=== PATIENT | female | born 1990 | race Caucasian/White ===

== ENCOUNTER 2020-06-22 14:01 | Emergency (ER) | payer OTHER ==
[~2020-06-22] VITALS: Ht 162.6 cm; Wt 63.0 kg
--- NOTE | 2020-06-22 14:39 | PHYS DOC ---
Past History Past Medical History: Hypertension, Ovarian Cyst Past Surgical History: Alcohol Use: Occasionally General Adult EDM: Chief Complaint: ABDOMINAL PAIN HPI: HPI: Patient is a 29-year-old female who presents emergency department with complaints of right lower quadrant abdominal pain and nausea. Patient states that her abdominal pain increases with movement. She denies any vomiting, diarrhea, dysuria, hematuria, increased urinary frequency, back pain, or dif ficulty voiding. The patient denies any fever, cough, shortness of breath, headache, body aches, fatigue, diarrhea, or rectal bleeding. She states her last bowel movement was this morning and it was a little more firm than usual but denies any other changes in her bowel habits. She currently rates her pain a 6 out of 10 on the pain scale, she denies any alleviating or exacerbating factors. Patient states she has been taking Tylenol and ibuprofen at home with no relief in her symptoms. Patient reports having a Mirena and states she has not had a menstrual cycle in over a year. She took a test yesterday because of the nausea and it was negative. Review of Systems: Review of Systems: Complete ROS is negative unless otherwise noted in HPI. Current Medications: Current Meds: Current Medications Medications (Trade) Dose Ordered Sig/Miryam Start Time Stop Time Status Last Admin Dose Admin Ondansetron HCl (Zofran) 4 mg 1X ONCE 06/22/20 14:45 06/22/20 14:46 UNV Sodium Chloride 1,000 ml @ 1,000 mls/hr 1X ONCE 06/22/20 14:45 06/22/20 15:44 UNV Allergies: Allergies: Allergies Coded Allergies Type Severity Reaction Last Updated Verified No Known Drug Allergies 06/22/20 No Physical Exam: PE: See Above Constitutional: Well developed, well nourished, no acute distress, non-toxic appearance. [] HENT: Normocephalic, atraumatic, bilateral external ears normal, nose normal. [] Eyes: PERRLA, EOMI, conjunctiva normal, no discharge. [] Neck: Normal range of motion, no stridor. [] Cardiovascular:Heart rate regular rhythm Lungs & Thorax: Respirations even and unlabored, no retractions, no respiratory distress Abdomen: soft, RLQ TTP, no rebound tenderness, no guarding, McBurney's point tenderness present, Rovsing sign positive, psoas sign positive Skin: Warm, dry, no erythema, no rash. [] Extremities: No cyanosis, ROM intact, no edema. [] Neurologic: Alert and oriented X 3, no focal deficits noted. [] Psychologic: Affect normal, judgement normal, mood normal. [] Current Patient Data: Vital Signs: Vital Signs Date Time Temp Pulse Resp B/P (MAP) Pulse Ox O2 Delivery O2 Flow Rate FiO2 06/22/20 14:20 98.2 95 24 143/89 (107) 100 Room Air EKG: EKG: [] Radiology/Procedures: Radiology/Procedures: PROCEDURE: CT ABD PELV W/ IV CONTRST ONLY CT abdomen pelvis with contrast dated 06/22/2020. No comparison available. CLINICAL INDICATION: Right lower quadrant pain and nausea. TECHNIQUE: Per contiguous axial imaging the abdomen pelvis performed after the administration of 75 cc Omnipaque 300. One or more of the following individualized dose reduction techniques were utilized for this examination: 1. Automated exposure control 2. Adjustment of the mA and/or kV according to patient size 3. Use of iterative reconstruction technique. FINDINGS: Limited images of lung bases are clear. Heart size within normal limits. No p leural or pericardial effusion. Liver, spleen, pancreas, adrenal glands, gallbladder and kidneys are unremarkable. No hydronephrosis. Unopacified GI tract normal in caliber and contour. No focal bowel wall thickening. No inflammatory stranding in the mesentery. The appendix is normal in caliber. No ascites or lymphadenopathy. Images of the pelvis show nondistended urinary bladder. Uterus and adnexa are unremarkable. Trace amount of free pelvic fluid. No pelvic adenopathy. There is an intrauterine contraceptive device in place appears adequately positioned in the endometrial canal. Bone windows show no acute findings. IMPRESSION: 1. No acute abnormality of abdomen or pelvis. Normal appendix. 2. Trace amount of free pelvic fluid, nonspecific. Electronically signed by: Delbert Sanders MD (06/22/2020 3:31 PM) [id number][] Heart Score: Risk Factors: Risk Factors: DM, Current or recent (<one month) smoker, HTN, HLP, family history of CAD, obesity. Risk Scores: Score 0 - 3: 2.5% MACE over next 6 weeks - Discharge Home Score 4 - 6: 20.3% MACE over next 6 weeks - Admit for Clinical Observation Score 7 - 10: 72.7% MACE over next 6 weeks - Early Invasive Strategies Course & Med Decision Making: Course & Med Decision Making Pertinent Labs and Imaging studies reviewed. (See chart for details) 29-year-old female presented to the emergency department with complaints of right lower quadrant abdominal pain for the last 3 days Work-up included labs and a CT abdomen pelvis. CBC was unremarkable, CMP revealed potassium of 3.3 otherwise unremarkable, UA not concerning for UTI, urine test was negative. CT revealed a normal-appearing appendix with a small amount of pelvic free fluid I advised the patient of her results, I discussed the possibility of an abdominal muscle strain or possible ruptured ovarian cyst. Patient was encouraged to take Tylenol and ibuprofen as needed for pain. Follow-up with her primary care doctor in the next 1 to 2 days, return to the ER if symptoms worsen. Patient verbalized an understanding of home care, medications, follow-up, and return to ED instructions and was in agreement with the plan of care. [] Dragon Disclaimer: Dragon Disclaimer: This electronic medical record was generated, in whole or in part, using a voice recognition dictation system. Departure Departure: Impression: Primary Impression: RLQ abdominal pain Disposition: 01 DC HOME SELF CARE/HOMELESS Condition: STABLE Referrals: FELECIA WILL (PCP) Patient Instructions: Abdominal Pain (Nonspecific), Muscle Strain, [id number] Additional Instructions: Tylenol or ibuprofen as needed for pain, also recommend application of heat or ice to help with soreness. Follow-up with your primary care doctor in the next 1 to 2 days, return to the ER if your symptoms worsen or you develop a fever. MILTON SOLIS BAKERY DELIVERER Jun 22, 2020 14:39
[2020-06-22] MEDS ORDERED: ONDANSETRON PF 4 MG/2 ML VIAL. IVP ONE (14:45)
[2020-06-22] MEDS ORDERED: IOHEXOL 300 MG/ML 75 ML VIAL. IV ONE (14:45)
[2020-06-22] MEDS ORDERED: IV NORMAL SALINE 1,000ML 1,000 ML IV ONE (14:45)
[2020-06-22 15:04] LABS: BASO % 1 % (0-3); EOS # 0.3 x10^3/uL (0.0-0.7); EOS % 3 % (0-3); HEMATOCRIT 43.2 % (36.0-47.0); HEMOGLOBIN 14.7 g/dL (12.0-15.5); LYMPH # 2.3 x10^3/uL (1.0-4.8); LYMPH % 25 % (24-48); MEAN CORPUSCULAR HEMOGLOBIN 31 pg (25-35); MEAN CORPUSCULAR HGB CONC 34 g/dL (31-37); MEAN CORPUSCULAR VOLUME 92 fL (79-100); MONO # 0.7 x10^3/uL (0.0-1.1); MONO % 8 % (0-9); NEUT # 5.8 x10^3uL (1.8-7.7); NEUT % 64 % (31-73); PLATELET COUNT 311 x10^3/uL (140-400); RED CELL DISTRIBUTION WIDTH 12.3 % (11.5-14.5)
[2020-06-22 15:13] LABS: BILIRUBIN,URINE NEG (NEG); CLARITY,URINE CLEAR; COLOR,URINE STRAW; GLUCOSE,URINE NEG (NEG)
[2020-06-22 15:15] LABS: NITRITE,URINE NEG (NEG); UROBILINOGEN,URINE 0.2 mg/dL (0.2 mg/dL)
[2020-06-22 15:17] LABS: BACTERIA,URINE FEW /HPF (0-FEW); RBC,URINE OCC /HPF (0-2); SQUAMOUS EPITHELIAL CELL,UR FEW /LPF; WBC,URINE OCC /HPF (0-4)
[2020-06-22 15:19] LABS: ALBUMIN 4.3 g/dL (3.4-5.0); ALBUMIN/GLOBULIN RATIO 1.3 (1.0-1.7); CALCIUM 9.1 mg/dL (8.5-10.1); CREATININE 0.7 mg/dL (0.6-1.0); GFR 98.9; POTASSIUM 3.3 mmol/L (3.5-5.1); TOTAL BILIRUBIN 0.6 mg/dL (0.2-1.0); TOTAL PROTEIN 7.6 g/dL (6.4-8.2)
--- NOTE | 2020-06-22 15:34 | RAD ---
CT abdomen pelvis with contrast dated 06/22/2020. No comparison available. CLINICAL INDICATION: Right lower quadrant pain and nausea. TECHNIQUE: Per contiguous axial imaging the abdomen pelvis performed after the administration of 75 c c Omnipaque 300. One or more of the following individualized dose reduction techniques were utilized for this examinat ion: 1. Automated exposure control 2. Adjustment of the mA and/or kV according to patient size 3. Use of iterative reconstruction technique. FINDINGS: Limited images of lung bases are clear. Heart size within normal limits. No pleural or pericardial ef fusion. Liver, spleen, pancreas, adrenal glands, gallbladder and kidneys are unremarkable. No hydronephrosis. Unopacified GI tract normal in caliber and contour. No focal bowel wall thickening. No inflammatory s tranding in the mesentery. The appendix is normal in caliber. No ascites or lymphadenopathy. Images of the pelvis show nondistended urinary bladder. Uterus and adnexa are unremarkable. Trace blas unt of free pelvic fluid. No pelvic adenopathy. There is an intrauterine contraceptive device in plac e appears adequately positioned in the endometrial canal. Bone windows show no acute findings. IMPRESSION: 1. No acute abnormality of abdomen or pelvis. Normal appendix. 2. Trace amount of free pelvic fluid, nonspecific. Electronically signed by: Delbert Sanders MD (06/22/2020 3:31 PM) [id number]
[2020-06-22 15:52] VITALS: BP 112/67
== END 2020-06-22 16:15 | disposition home or self-care (01) ==
LOC: ER 14:01
DX: R10.31 Right lower quadrant pain (principal); R11.0 Nausea; I10 Essential (primary) hypertension; Z98.890 Other specified postprocedural states
CPT/HCPCS: 36415; 74177; 80053; 81001; 81025; 85025; 96361; 96374; 99285; J2405; J7030; Q9967